=== PATIENT | male | born 1980 | race Hispanic/Latino ===

== ENCOUNTER 2017-04-08 18:59 | Emergency (ER) | payer OTHER ==
[~2017-04-08 18:59] MED LIST: CIPRODEX OTIC7.5 ML OT
[2017-04-08 19:10] VITALS: BP 132/76
== END 2017-04-08 21:18 | disposition admitted as inpatient to this hospital (09) ==
LOC: ERH 18:59
DX: S61.217A Laceration without foreign body of left little finger without damage to nail, initial encounter (principal)